=== PATIENT | male | born 1990 | race Caucasian/White ===

== ENCOUNTER 2024-12-12 16:27 | Inpatient (IN) | payer BC, SELFPAY ==
[2024-12-12 09:59] VITALS: BP 122/83
--- NOTE | 2024-12-12 11:22 | ED.GENMED ---
History of Present Illness
<Mary Ann Smyth GOVERNMENT EMPLOYEE - Last Filed: 12/12/24 17:19>
General
Chief Complaint: Abdominal Pain
Source: patient
Exam Limitations: none
Time Seen by Provider: 12/12/24 11:11
Nursing documentation reviewed up to this point in time: agreed with
History of Present Illness
History of Present Illness:
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 He states 2 days ago he was feeling much
better and started eating again and had pizza and his stomach was a little upset but not bad. Last night he had quesadillas and 2 hours later he had intense generalized stomach pains and broke out in a sweat. He took Tums and Pepto-Bismol with no
relief. He then burped and got some relief. At 11 PM last night he had a few pretzels and at 1 AM he awakened' agonizing pain' which lasted about an hour with vomiting x 3 during that time. Pain improved a little and he did fall back asleep. His
abdomen feels distended and inflamed. His diarrhea has improved to now loose stools. He denies nausea. He states at this time pain is minimal. Denies fever.
Past History
<Mary Ann Smyth GOVERNMENT EMPLOYEE - Last Filed: 12/12/24 17:19>
Past History
ED Past Medical History: HTN, Psychiatric (Anxiety), Other (VLCAD) and Other
ED Past Surgical History: Other (wisdom teeth)
Social History
Tobacco: Non-smoker
Alcohol: Occasional
Personal:
Living: with family
Employment: Employed
Family History
Family History: Negative Diabetes, Hypertension or CAD
Review of Systems
<Mary Ann Smyth GOVERNMENT EMPLOYEE - Last Filed: 12/12/24 17:19>
Review of Systems
Allergies reviewed?: Yes
All Other Systems: ROS reviewed and negative except as documented in HPI and ROS
Constitutional: Denies fever or fatigue
Respiratory: Denies trouble breathing
Cardiac: Denies chest pain
ABD/GI: Reports abdominal pain; Denies nausea, vomiting, diarrhea, constipated, bloody stools, black stools or anorexia
: Reports no symptoms
Musculoskeletal: Reports no symptoms
Skin: Reports no symptoms
Neurological: Reports no symptoms
Phy Exam
<Mary Ann Smyth, GOVERNMENT EMPLOYEE - Last Filed: 12/12/24 17:19>
Physical Exam
Physical Exam:
GENERAL: No acute distress. A&Ox3.
CONSTITUTIONAL: Afebrile.
EYES: clear, conjunctivae normal
ENMT: moist mucus membranes
RESPIRATORY: Regular respirations, nonlabored, lungs clear.
CARDIOVASCULAR: Regular rate and rhythm, no murmurs, no rubs.
GI: Soft, generally mildly tender to palpation, mildly distended, normal BS
MUSCULOSKELETAL: Moves with ease. Well perfused.
SKIN: Warm, dry, pink
PSYCH: Normal mood and affect. Well kept, interactive and appropriate
NEUROLOGIC: Awake, alert and oriented. No focal neurological deficits
Course
<Mary Ann Smyth, GOVERNMENT EMPLOYEE - Last Filed: 12/12/24 17:19>
Orders/Labs/Results
Orders:
Orders
12/12/24 11:21
CT Abd/Pel (IV only)-DH only Urgent
Comment:
Reason For Exam: generalized abd pain bloating post norovirus
0.9% Sodium Chloride 1000 ml [Nss] 1,000 ml IV BOLUS
12/12/24 11:30
Complete Blood Count/With Diff Urgent
Comprehensive Metabolic Panel Urgent
Lipase Urgent
Monotest Urgent
Comment: ADD ON
12/12/24 12:14
Add On- LAB Urgent
Tests Added?: mono test
12/12/24 12:54
Ondansetron Injectable [Zofran] 4 mg .ROUTE .STK-MED ONE
12/12/24 12:56
Ondansetron Injectable [Zofran] 4 mg IV NOW STA
12/12/24 13:42
Nitroglycerin Ointment [Nitro-Bid] 1 inch TOPICAL NOW STA
12/12/24 14:00
Dextrose 5%/0.9%Sodchl 1000 ml [D5/0.9% Sodium Chloride] 1,000 ml IV 125 mls/hr
US Abdomen Complete/Upper Urgent
Comment:
Reason For Exam: GB wall thickening on CT, elevated lipase
12/12/24 Dinner
Full Liquids
12/12/24 16:08
Admit/Transfer Patient As Directed
Co-Sign Provider:
Level of Care: Inpatient admission
Assign to:: Medical/Surgical
Physician / Group: Carmella
Diagnosis: Acute abdominal pain
Reason for Hospitalization: Acute abdominal pain
Expected length of stay greater than two midnights?: Yes
ELOS- Estimated Length of Stay in days: 3
I certify the patient meets the requirements for IP care: Yes
PRN Pain Medication Management As Directed
May give lesser potent ordered pain med per pt: Yes
preference::
Protocol:: Medication orders for pain may be administered in a
manner that supports deferring to patient preference
when the pt is:
- Requesting an ordered lesser potent pain medication.
Least to most potent pain medications are defined
as: acetaminophen < NSAID < tramadol < opioids
(morphine, oxycodone, hydromorphone).
- Requesting a lesser dose of the same medication IF
ORDERED.
- Requesting a less intrusive route of administration
if both routes are prescribed by the provider (PO <
IV).
DX Deep Vein Thrombosis Video Routine
12/12/24 16:09
Code Status As Directed
Resuscitation Status: Full Code
GASTROINTESTINAL CONSULT Routine
Consulting Provider: Meghna Upton
Was physician already notified: Yes
Reason for consult: History of abdominal pain, elevated transaminase and lipase
Bisacodyl [Dulcolax] 10 mg RECTAL [id number] PRN
Docusate W/Senna [Senokot-S] 1 tablet PO BIDPRN PRN
Ketorolac [Toradol] 10 mg IV Q6HPRN PRN
Morphine Sulfate 2 mg IV Q4HPRN PRN
Ondansetron Injectable [Zofran] 4 mg IV Q6HPRN PRN
Polyethylene Glycol Powder [Miralax] 17 grams PO DAILYPRN PRN
Activity As Directed
Activity Level: Out of Bed-Early Mobility
Vital Signs As Directed
Frequency: Per unit guidelines
12/12/24 18:00
Enoxaparin Sodium [Lovenox] 40 mg SC QPM
Piperacillin/Tazo 3.375 Gram [Zosyn] 3.375 gram in 50 ml IV Q6H
12/13/24 06:00
Complete Blood Count/With Diff IN AM
Comprehensive Metabolic Panel IN AM
TSH IN AM
12/13/24 08:00
Citalopram [Celexa] 10 mg PO DAILY
Abnormal Lab Results
12/12/24
11:30
WBC 4.1 L 10^3/uL
(4.8-10.8)
RBC 4.47 L 10^6/uL
(4.70-6.10)
Hct 38.7 L %
(39.0-52.0)
MPV 11.6 H fL
(7.4-10.4)
Monocytes % 12.0 H %
(1.7-9.3)
Carbon Dioxide 34 H mmol/L
(22-30)
Glucose 101 H mg/dl
(70-99)
Total Bilirubin 1.8 H mg/dl
(0.2-1.3)
AST 606 H* U/L
(17-59)
ALT 564 H* U/L
(0-50)
Lipase 3979 H* U/L
(23-300)
12/12/24 11:30
12/12/24 11:30
Vital Signs
Initial and Last Documented VS:
Initial Vital Signs
Temp Pulse Resp BP Pulse Ox
98.4 F 81 20 122/83 95
12/12/24 09:59 12/12/24 09:59 12/12/24 09:59 12/12/24 09:59 12/12/24 09:59
Last Documented Vital Signs
Temp Pulse Resp BP Pulse Ox
98.4 F 81 20 122/83 95
12/12/24 09:59 12/12/24 09:59 12/12/24 09:59 12/12/24 09:59 12/12/24 09:59
Cuff Matcher consulted with Physician
Cuff Matcher consulted with physician?: Yes
Name of Physician Consulted: Roro
<Lew Read, DO - Last Filed: 12/12/24 13:35>
Orders/Labs/Results
Orders:
Orders
12/12/24 11:21
CT Abd/Pel (IV only)-[facility] only Urgent
Comment:
Reason For Exam: generalized abd pain bloating post norovirus
0.9% Sodium Chloride 1000 ml [Nss] 1,000 ml IV BOLUS
12/12/24 11:30
Complete Blood Count/With Diff Urgent
Comprehensive Metabolic Panel Urgent
Lipase Urgent
Monotest Urgent
Comment: ADD ON
12/12/24 12:14
Add On- LAB Urgent
Tests Added?: mono test
12/12/24 12:54
Ondansetron Injectable [Zofran] 4 mg .ROUTE .STK-MED ONE
12/12/24 12:56
Ondansetron Injectable [Zofran] 4 mg IV NOW STA
12/12/24 13:42
Nitroglycerin Ointment [Nitro-Bid] 1 inch TOPICAL NOW STA
12/12/24 14:00
Dextrose 5%/0.9%Sodchl 1000 ml [D5/0.9% Sodium Chloride] 1,000 ml IV 125 mls/hr
US Abdomen Complete/Upper Urgent
Comment:
Reason For Exam: GB wall thickening on CT, elevated lipase
12/12/24 Dinner
Full Liquids
12/12/24 16:08
Admit/Transfer Patient As Directed
Co-Sign Provider:
Level of Care: Inpatient admission
Assign to:: Medical/Surgical
Physician / Group: Carmella
Diagnosis: Acute abdominal pain
Reason for Hospitalization: Acute abdominal pain
Expected length of stay greater than two midnights?: Yes
ELOS- Estimated Length of Stay in days: 3
I certify the patient meets the requirements for IP care: Yes
PRN Pain Medication Management As Directed
May give lesser potent ordered pain med per pt: Yes
preference::
Protocol:: Medication orders for pain may be administered in a
manner that supports deferring to patient preference
when the pt is:
- Requesting an ordered lesser potent pain medication.
Least to most potent pain medications are defined
as: acetaminophen < NSAID < tramadol < opioids
(morphine, oxycodone, hydromorphone).
- Requesting a lesser dose of the same medication IF
ORDERED.
- Requesting a less intrusive route of administration
if both routes are prescribed by the provider (PO <
IV).
DX Deep Vein Thrombosis Video Routine
12/12/24 16:09
Code Status As Directed
Resuscitation Status: Full Code
GASTROINTESTINAL CONSULT Routine
Consulting Provider: Meghna Upton
Was physician already notified: Yes
Reason for consult: History of abdominal pain, elevated transaminase and lipase
Bisacodyl [Dulcolax] 10 mg RECTAL [id number] PRN
Docusate W/Senna [Senokot-S] 1 tablet PO BIDPRN PRN
Ketorolac [Toradol] 10 mg IV Q6HPRN PRN
Morphine Sulfate 2 mg IV Q4HPRN PRN
Ondansetron Injectable [Zofran] 4 mg IV Q6HPRN PRN
Polyethylene Glycol Powder [Miralax] 17 grams PO DAILYPRN PRN
Activity As Directed
Activity Level: Out of Bed-Early Mobility
Vital Signs As Directed
Frequency: Per unit guidelines
12/12/24 18:00
Enoxaparin Sodium [Lovenox] 40 mg SC QPM
Piperacillin/Tazo 3.375 Gram [Zosyn] 3.375 gram in 50 ml IV Q6H
12/13/24 06:00
Complete Blood Count/With Diff IN AM
Comprehensive Metabolic Panel IN AM
TSH IN AM
12/13/24 08:00
Citalopram [Celexa] 10 mg PO DAILY
Abnormal Lab Results
12/12/24
11:30
WBC 4.1 L 10^3/uL
(4.8-10.8)
RBC 4.47 L 10^6/uL
(4.70-6.10)
Hct 38.7 L %
(39.0-52.0)
MPV 11.6 H fL
(7.4-10.4)
Monocytes % 12.0 H %
(1.7-9.3)
Carbon Dioxide 34 H mmol/L
(22-30)
Glucose 101 H mg/dl
(70-99)
Total Bilirubin 1.8 H mg/dl
(0.2-1.3)
AST 606 H* U/L
(17-59)
ALT 564 H* U/L
(0-50)
Lipase 3979 H* U/L
(23-300)
12/12/24 11:30
12/12/24 11:30
Vital Signs
Initial and Last Documented VS:
Initial Vital Signs
Temp Pulse Resp BP Pulse Ox
98.4 F 81 20 122/83 95
12/12/24 09:59 12/12/24 09:59 12/12/24 09:59 12/12/24 09:59 12/12/24 09:59
Last Documented Vital Signs
Temp Pulse Resp BP Pulse Ox
98.4 F 81 20 122/83 95
12/12/24 09:59 12/12/24 09:59 12/12/24 09:59 12/12/24 09:59 12/12/24 09:59
<Mary Ann Smyth GOVERNMENT EMPLOYEE - Last Filed: 12/12/24 17:19>
MDM/Problems Addressed
Differential Diagnosis Includes:
colitis
MDM/Problems Addressed:
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 He states 2 days ago he was feeling much
better and started eating again and had pizza and his stomach was a little upset but not bad. Last night he had quesadillas and 2 hours later he had intense generalized stomach pains and broke out in a sweat. He took Tums and Pepto-Bismol with no
relief. He then burped and got some relief. At 11 PM last night he had a few pretzels and at 1 AM he awakened' agonizing pain' which lasted about an hour with vomiting x 3 during that time. Pain improved a little and he did fall back asleep. His
abdomen feels distended and inflamed. His diarrhea has improved to now loose stools. He denies nausea. He states at this time pain is minimal. Denies fever.
Afebrile, NAD
Abdomen mildly distended, generally tender
12:10 PM:
CBC with no clinically significant abnormality
CMP: Bicarb 34, elevated liver enzymes
Lipase 3979
2:[address] abd/pelvis w IV contrast radiology report read: IMPRESSION:
Mild gallbladder wall thickening with the suggestion of a few noncalcified gallstones. Recommend clinical correlation for acute cholecystitis. An abdominal ultrasound could be performed for further evaluation.
Hepatic steatosis.
Mild splenomegaly.
Dr. Read in to evaluate
US ordered. Pt updated on plan, need for admission. He is ambulating to and from , no acute distress.
3:30 p.m.
Us upper abd. Radiology report read: IMPRESSION:
Small nonmobile echogenic foci in the gallbladder most compatible with gallbladder polyps.
Gallbladder wall thickening and pericholecystic fluid. While this could represent acalculus cholecystitis, given the reported history of elevated lipase levels, findings may be reactive from pancreatitis. The pancreas is not well visualized by
ultrasound, but no conspicuous peripancreatic edema/fluid on the previous CT.
Hepatic steatosis.
Mild splenomegaly.
Hospitalist and GI doctor notified of admission. GI consult in. Pt remains in no distress
<Mary Ann Smyth, GOVERNMENT EMPLOYEE - Last Filed: 12/12/24 17:19>
*Critical Care Note
Total Time (30-74mins, 75-104mins- exclusive of procedures): Not Applicable
ED Attending Note
<Mary Ann Smyth, GOVERNMENT EMPLOYEE - Last Filed: 12/12/24 17:19>
-
Portions of this chart may have been created with voice recognition software.� Occasional wrong word or��sound alike� substitutions may have occurred due to the inherent limitations of voice recognition software.
<Lew Read DO - Last Filed: 12/12/24 13:35>
ED Attending Note
Patient seen and examined by attending physician: Yes
I performed the substantive portion of visit, reviewed & personally made and approve the management plan that is documented in note by myself or YESSI.: Yes
Discharge Plan
Departure
Patient Disposition: Admit
Date of Disposition: 12/12/24
Time of Disposition: 15:31
Admit to: Med/Surg
Presentation/result/management discussed w/ accepting MD/DO: Hospitalist
Condition: Fair
Discharge Problem:
Acute pancreatitis
Interventions
Interventions:
*Risk Screen - Suicide Last Done: 12/12/24 09:59
*General Assessment Last Done: 12/12/24 11:15
*Neglect/Abuse Screening Last Done: 12/12/24 09:59
HX-Kennbq-Tmzlanfbra Assessment Last Done: 12/12/24 11:15
[2024-12-12 11:40] VITALS: BMI 27.9
[2024-12-12 11:46] LABS: % Basophils 0.2 % (0-2); % Eosinophils 0.2 % (0-6); % Immature Granulocytes 0.2 % (0-0.5); % Lymphocytes 28.6 % (20.5-51.1); % Neutrophils 58.8 % (42.2-75.2); Absolute Lymphocytes 1.2 10^3/uL (1.2-3.4); Absolute Monocytes 0.5 10^3/uL (0.1-0.6); Absolute Neutrophils 2.4 10^3/uL (1.4-6.5); Hematocrit 38.7 % (39.0-52.0); Hemoglobin 13.6 g/dL (13.0-18.0); Mean Corp Hgb Conc. 35.1 g/dL (33.0-37.0); Mean Corpuscular Hgb 30.4 pg (27.0-31.0); Mean Corpuscular Volume 86.6 fL (80.0-94.0); Mean Platelet Volume 11.6 fL (7.4-10.4); Nucleated Red Blood Cells % 0 % (-); Platelet Count 210 10^3/uL (130-400); Red Blood Cell Count 4.47 10^6/uL (4.70-6.10); Red Cell Dist. Width 12.1 % (11.5-14.5); White Blood Cell Count 4.1 10^3/uL (4.8-10.8)
[2024-12-12] MEDS: NSS 1000 IV (11:49)
[2024-12-12 12:00] LABS: ALT (SGPT) 564 U/L (0-50); AST (SGOT) 606 U/L (17-59); Albumin 3.8 g/dl (3.5-5.0); Alkaline Phosphatase 64 U/L (38-126); Blood Urea Nitrogen 16 mg/dl (9-20); Calcium 8.7 mg/dl (8.4-10.2); Carbon Dioxide 34 mmol/L (22-30); Chloride 98 mmol/L (98-107); Estimated Creatinine Clearance 121 ml/min; Glucose 101 mg/dl (70-99); Potassium 4.1 mmol/L (3.5-5.1); Sodium 136 mmol/L (135-145); Total Bilirubin 1.8 mg/dl (0.2-1.3); Total Protein 6.3 g/dl (6.3-8.2); eGFR > 60.00
[2024-12-12 12:05] LABS: Lipase 3979 U/L (23-300)
[2024-12-12] MEDS: ZOFRAN 4 MG IV (12:56)
[2024-12-12 13:57] LABS: Monotest Negative (Negative)
[2024-12-12] MEDS: D5/0.9% SODIUM CHLORIDE 1000 IV ×2 (14:00→21:51)
--- NOTE | 2024-12-12 16:12 | HPS.HSE ---
Family Physician
-
Family Physician: Austin Bocanegra
Chief Complaint
-
Acute abdominal pain
History of Present Illness
34-year-old male with history of hypertension, VLCAD (very long-chain acyl-CoA dehydrogenase deficiency) and chronically elevated LFT, anxiety disorder, presented to the hospital complaining of intermittent generalized abdominal mostly periumbilical
pain for the last few days associated with recurrent episodes of nausea and nonbloody vomiting.
Story goes back to last Friday when he came down to the norovirus gastroenteritis look like to recover but Friday he was living with his parents had some pizza and yesterday look like at some quesadilla shortly after that he started having these
moderately severe intermittent abdominal pain, localized no radiation, as mentioned associated with nausea and nonbloody vomiting and nonbloody diarrhea. Last week he had much more diarrhea.
Admits swelling and low-grade fever, no chest pain or shortness of breath or cough or congestion, no recent travel admit the low son was sick from a daycare last week.
No weakness or numbness in extremities.
Currently awake, alert and oriented x 3 and able to provide detailed information accompanied by the at the bedside.
Workup in the ER showed elevated transaminases and lipase, while CT and ultrasound showed no dilated biliary system no evidence of pancreatitis while there is swelling of the gallbladder but no stones seen.
Currently looks comfortable and having no abdominal pain
Medical History
Past Medical History
Past Medical History: Reports Other
Additional Past Medical History:
Past medical history archive reviewed:
Hypertension
Anxiety disorder
VLCAD (very long-chain acyl-CoA dehydrogenase deficiency)
History of Lyme disease
[place] teeth resection
Social history: Lives at home with his , denies smoking and rarely drinks alcohol and no drug and is independent
Family history: Reviewed and noncontributory
Past Surgical History: Reports Other
Social History
Drug: Other
Family History
Family History: Other
Allergies / Home Medications
Allergies reflects when Allergies were last updated in [facility].
Home Medications with original date entered in [facility]
Allergy/Medication List:
Allergies
Allergy/AdvReac Type Severity Reaction Status Date / Time
No Known Allergies Allergy Verified 12/12/24 09:59
Home Medications
Home medication reconciled with the patient: Takes 2 medication all
Citalopram 10 mg daily
lisinopril 10 mg tablet 10 mg PO DAILY 07/14/22
Review of Systems
-
A 12 point ROS was completed and negative except as noted: Yes
Physical Exam
Vital Signs
Vital Signs
Temp Pulse Resp BP Pulse Ox
98.4 F 81 20 122/83 95
12/12/24 09:59 12/12/24 09:59 12/12/24 09:59 12/12/24 09:59 12/12/24 09:59
Physical exam:
General: Awake, alert and oriented x3, not in distress and holds appropriate conversation.
HEENT: No active discharge, ecchymosis or bruising, moist lips, tongue and mucous membrane.
Eyes: No discharge or red conjunctiva, no nystagmus, pupils are reactive and equal
Neck:Supple, no JVD no bruit no goiter.
Respiratory: Normal AP contour and diameter, normal chest wall movement, normal respiratory effort, no respiratory distress,
Lungs: Good air entry bilaterally, no wheezing or rhonchi, no rales or crackles
Heart: S1, S2 regular, normal rate, no added sound.
Gastrointestinal: Hyperactive bowel sounds, soft, mild generalized tenderness with no guarding or rigidity or organomegaly
Musculoskeletal: , no chest wall abnormality or tenderness. All joints and extremities have good range of motion, no muscle tenderness or any joint swelling or tenderness.
Extremities: No pitting edema, good peripheral pulses, good range of motion
Skin: Warm and dry, no ulceration, normal color.
Neurological: Awake, alert and oriented x3, normal mentation and moves extremities for, speech clear and comprehensive, good muscle tone,
Psychiatric: Normal mood, normal thought and judgment, normal affect,
Physical Exam
General: Other
Laboratory Results
-
12/12/24 11:30
12/12/24 11:30
Laboratory Results
Total Bilirubin 1.8 mg/dl (0.2-1.3) H 12/12/24 11:30
AST 606 U/L (17-59) H* 12/12/24 11:30
ALT 564 U/L (0-50) H* 12/12/24 11:30
Alkaline Phosphatase 64 U/L (38-126) 12/12/24 11:30
Lipase 3979 U/L (23-300) H* 12/12/24 11:30
Abdominal ultrasound:
Small nonmobile echogenic foci in the gallbladder most compatible with gallbladder polyps.
Gallbladder wall thickening and pericholecystic fluid. While this could represent acalculus cholecystitis, given the reported history of elevated lipase levels, findings may be reactive from pancreatitis. The pancreas is not well visualized by
ultrasound, but no conspicuous peripancreatic edema/fluid on the previous CT.
Hepatic steatosis.
Mild splenomegaly.
CT abdomen and pelvis:
Mild gallbladder wall thickening with the suggestion of a few noncalcified gallstones. Recommend clinical correlation for acute cholecystitis. An abdominal ultrasound could be performed for further evaluation.
Hepatic steatosis.
Mild splenomegaly.
Data Reviewed
-
Diagnostic Radiology: Image Personally Visualized and interpreted, Report Reviewed by me, Discussed with Patient and Discussed with Family
CT Scan: Image Personally Visualized and interpreted, Discussed with Patient and Discussed with Family
Lab Data: Labs Reviewed by me, Discussed with Patient and Discussed with Family
Old Records: Reviewed
Impression/Plan
-
IMPRESSION:
34-year-old male with history of VLCAD (very long-chain acyl-CoA dehydrogenase deficiency) and chronically elevated LFT, hypertension who had a norovirus infection last week presented again with a recurrent generalized abdominal pain mostly
periumbilical associated with nonbloody nausea and diarrhea.
LFT and lipase is elevated while CT abdomen and gallbladder did not show any dilated biliary system gallstones with concern for cholecystitis.
Acute abdominal pain:
Possibly related to gastroenteritis and cholecystitis, pancreatitis even the CAT scan showed no evidence of pancreatitis but his lipase is elevated and had acute abdominal pain, no evidence of biliary obstruction.
-Will put him on a full liquid diet
-Nausea, pain medication with morphine and Toradol as needed
-IV fluid
-GI consult, accordingly may need surgical consult
-Recheck lab
-If any concern may consider MRCP.
Elevation of transaminase: Patient has history of VLCAD (very long-chain acyl-CoA dehydrogenase deficiency) and chronically elevated LFT, possibly related to this while biliary obstruction or dehydration from viral infection could be a possibility.
-Avoid hepatotoxin
-GI consult
-Recheck lab
-As above ,, MRCP may need to be considered if not improving
Gastroenteritis:-Patient had a normal gastric virus gastroenteritis last week
-Not related to the current presentation versus pancreatitis and no cholecystitis
-Full liquid diet
-IV fluid
-If diarrhea is persistent may consider getting stool culture again
Elevated lipase: Acute pancreatitis specially had a fatty food yesterday versus related to gastroenteritis need to be considered, obstructive or biliary cause could be a possibility
-Manage as above
-Recheck lab.
Concern for acute cholecystitis:
-Manage as above
-Full liquid diet
-GI consult for now
-Cover with Zosyn
-May need surgical consult pending his progression.
Hypertension:
-Monitor blood pressure
-Continue lisinopril with close monitoring of vital sign.
Anxiety disorder:
-On citalopram 10 mg we will continue.
All discussed with the patient and his in detail and all the question answered
CODE STATUS of full code
DVT prophylaxis Lovenox
PLAN:
[2024-12-12 18:13] VITALS: BP 130/76; BMI 27.8
[2024-12-12] MEDS: TORADOL 10 MG IV (18:38)
[2024-12-12] MEDS: ZOSYN 50 IV ×2 (18:40→22:59)
[2024-12-12] MEDS: LOVENOX 40 MG SC (18:40)
[2024-12-12] MEDS: LEXAPRO 10 MG PO (21:52)
[2024-12-12] MEDS: ZESTRIL 10 MG PO (21:52)
[2024-12-12 23:04] VITALS: BP 128/75
[2024-12-13] MEDS: ZOSYN 50 IV ×2 (05:12→12:21)
[2024-12-13] MEDS: D5/0.9% SODIUM CHLORIDE 1000 IV ×2 (05:12→17:26)
[2024-12-13 06:16] LABS: % Basophils 0.4 % (0-2); % Eosinophils 0.7 % (0-6); % Lymphocytes 38.7 % (20.5-51.1); % Neutrophils 46.2 % (42.2-75.2); Absolute Lymphocytes 1.1 10^3/uL (1.2-3.4); Absolute Monocytes 0.4 10^3/uL (0.1-0.6); Absolute Neutrophils 1.3 10^3/uL (1.4-6.5); Hematocrit 34.4 % (39.0-52.0); Hemoglobin 12.2 g/dL (13.0-18.0); Mean Corp Hgb Conc. 35.5 g/dL (33.0-37.0); Mean Corpuscular Hgb 30.8 pg (27.0-31.0); Mean Corpuscular Volume 86.9 fL (80.0-94.0); Mean Platelet Volume 11.4 fL (7.4-10.4); Nucleated Red Blood Cells % 0 % (-); Platelet Count 167 10^3/uL (130-400); Red Blood Cell Count 3.96 10^6/uL (4.70-6.10); Red Cell Dist. Width 12.3 % (11.5-14.5); White Blood Cell Count 2.7 10^3/uL (4.8-10.8)
[2024-12-13 06:57] LABS: AST (SGOT) 637 U/L (17-59); Albumin 3.1 g/dl (3.5-5.0); Alkaline Phosphatase 56 U/L (38-126); Blood Urea Nitrogen 12 mg/dl (9-20); Calcium 7.8 mg/dl (8.4-10.2); Carbon Dioxide 33 mmol/L (22-30); Chloride 102 mmol/L (98-107); Estimated Creatinine Clearance 110 ml/min; Glucose 109 mg/dl (70-99); Potassium 4.2 mmol/L (3.5-5.1); Sodium 137 mmol/L (135-145); Total Bilirubin 1.9 mg/dl (0.2-1.3); Total Protein 5.1 g/dl (6.3-8.2); eGFR > 60.00
[2024-12-13 07:05] VITALS: BP 116/65
[2024-12-13 07:05] LABS: ALT (SGPT) 792 U/L (0-50)
[2024-12-13 07:17] LABS: TSH 0.71 uIU/ml (0.47-4.68)
--- NOTE | 2024-12-13 08:14 | CON.GI ---
Addendum entered and electronically signed by Meghna Upton MD 12/13/24 12:54:
I saw and examined the patient.
The WEBLOGIC DEVELOPER or PA's note was reviewed and I agree with the note.
Comment:
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 He states he had norovirus earlier in the week and
as it was resolving he started eating pizza and quesadillas. Normally he also takes a supplement for his VL CAD but he does not think it was effective. On admission to the hospital he had a lipase of 3900 and transaminases in the 500 range. He
does have elevated transaminases at baseline. He had an ultrasound and CAT scan. There is no evidence of pancreatitis but he does have gallstones he has no obvious biliary dilation.
abd: soft, nontender
impression:
VLCAD
abdominal pain
nausea
s/p recent norovirus
plan:
His symptoms do sound like he may have been having a flare of his VLCAD which she knows leads to elevated CK, and transaminases. This may have been because he was not absorbing his supplement and was also eating foods he normally should not be
eating. On the other hand this also could be consistent with a passed gallstone. His lipase did markedly drop. For now would do the following
1. check triglycerides
2. w/u for elevated transaminases
3. MRI/MRCP to ensure he does not have a retained stone.
4. If negative I would advance his diet to a high carb diet. We do have to be careful as he does not have his supplement that he chronically takes to prevent flares.
5. He has had both an upper endoscopy and colonoscopy in the past which were normal.
6. continue IVfs and zofran
Original Note:
Consultation
-
Date/Time Consultation Requested: 12/12/2024
Date/Time Consultation Performed: 12/13/2024
Requesting Provider: Monika Weir MD
Performing Provider: Ivett Shore MD
Reason for Consultation: Abdominal pain
Medical History
Chief Complaint / HPI
Chief Complaint: Abdominal pain
History of Present Illness:
Patient is a 34 years old male with a past medical history of VLCAD (very long-chain acyl-CoA dehydrogenase deficiency), chronically elevated LFT, hypertension and anxiety disorder who presented to ER complaining from abdominal pain, feeling weak
and nauseous. Patient reports that he had a gastroenteritis like-symptoms since last week complicated with vomiting, diarrhea and episodes of severe mid-abdominal pain which started on December 05 and improved over the time until Friday night.
On Friday night he ate some pizza and was able to tolerate it without vomiting or abdominal pain. Following day, he had some quesadilla but shortly after his symptoms come back including vomiting and intermittent abdominal pain. He reported his
diarrhea improved during this time and his last bowel movement was yesterday. Patient denied hematemesis and melena. An abdominal/Pelvis CT was obtained from the patient which showed hepatic steatosis, mild gallbladder wall thickening with a
suggestion of a few noncalcified gallstones, with recommendation to obtain an ultrasound for a possible acute cholecystitis. Abdominal ultrasound showed a mild pericholecystic fluid and pancreas was not able to visualize bile secondary to
adjacent bowel gas.
Past Medical History
Past Medical History: HTN and Other (VLCAD (very long-chain acyl-CoA dehydrogenase deficiency), history of Lyme disease, anxiety disorder)
Past Surgical History: Other ([place] teeth resection)
Social History
Tobacco: Non-Smoker
Alcohol: None
Drug: None
Personal:
Living: With Family
Family History
Family History: Reviewed & Not Pertinent
Allergies / Home Medications
Allergy/AdvReac Type Severity Reaction Status Date / Time
No Known Allergies Allergy Verified 12/12/24 09:59
�Medication �Instructions �Recorded
lisinopril 10 mg tablet 10 mg PO HS 07/14/22
escitalopram oxalate 10 mg tablet 10 mg PO HS 12/12/24
(Lexapro)
Review of Systems
-
History Source: Patient
All other systems: A 12 pt ROS was Negative except as stated above in HPI
Constitutional: Reports No Symptoms
EENT: Reports No Symptoms
Respiratory: Reports No Symptoms
Cardiac: Reports No Symptoms
Abdomen/GI: Reports Abdominal Pain, Nausea and Diarrhea
: Reports No Symptoms
Musculoskeletal: Reports No Symptoms
Skin: Reports No Symptoms
Neurological: Reports No Symptoms
Endocrine: Reports No Symptoms
Hematologic/Lymphatic: Reports No Symptoms
Vital Signs
Temp Pulse Resp BP Pulse Ox
98.1 F 54 18 116/65 96
12/13/24 07:05 12/13/24 07:05 12/13/24 07:05 12/13/24 07:05 12/13/24 07:05
Physical Exam
Exam
General: Well Developed, Well Nourished and No Apparent Distress
HEENT: Normocephalic and Anicteric
Respiratory: Clear
Cardiac: S1/S2 and Regular Rhythm
Breast: Deferred by me
GI: Soft, Non Tender and Non Distended
Musculoskeletal: No Clubbing
Skin: Warm and Dry
Neuro: Awake, Alert and Oriented
Psych: Calm
Results
WBC 2.7 10^3/uL (4.8-10.8) L 12/13/24 05:54
Hgb 12.2 g/dL (13.0-18.0) L 12/13/24 05:54
Hct 34.4 % (39.0-52.0) L 12/13/24 05:54
MCV 86.9 fL (80.0-94.0) 12/13/24 05:54
Plt Count 167 10^3/uL (130-400) D 12/13/24 05:54
Absolute Neuts (auto) 1.3 10^3/uL (1.4-6.5) L 12/13/24 05:54
Sodium 137 mmol/L (135-145) 12/13/24 05:54
Potassium 4.2 mmol/L (3.5-5.1) 12/13/24 05:54
Chloride 102 mmol/L (98-107) 12/13/24 05:54
Carbon Dioxide 33 mmol/L (22-30) H 12/13/24 05:54
BUN 12 mg/dl (9-20) 12/13/24 05:54
Creatinine 1.1 mg/dL (0.7-1.3) 12/13/24 05:54
Calcium 7.8 mg/dl (8.4-10.2) L 12/13/24 05:54
Total Bilirubin 1.9 mg/dl (0.2-1.3) H 12/13/24 05:54
AST 637 U/L (17-59) H* 12/13/24 05:54
ALT 792 U/L (0-50) H* 12/13/24 05:54
Alkaline Phosphatase 56 U/L (38-126) 12/13/24 05:54
Lipase 3979 U/L (23-300) H* 12/12/24 11:30
Diagnostic Image Results:
ABD CT:12/12/2024
IMPRESSION:
Mild gallbladder wall thickening with the suggestion of a few noncalcified gallstones. Recommend clinical correlation for acute cholecystitis. An abdominal ultrasound could be performed for further evaluation.
Hepatic steatosis.
Mild splenomegaly.
ABD US: 12/12/2024
IMPRESSION:
Small nonmobile echogenic foci in the gallbladder most compatible with gallbladder polyps.
Gallbladder wall thickening and pericholecystic fluid. While this could represent acalculus cholecystitis, given the reported history of elevated lipase levels, findings may be reactive from pancreatitis. The pancreas is not well visualized by
ultrasound, but no conspicuous peripancreatic edema/fluid on the previous CT.
Hepatic steatosis.
Mild splenomegaly.
Prior GI Procedures:
EGD 10/02/22:
Findings:
The examined esophagus was normal.
Mild inflammation was found in the stomach. Biopsies were taken with a
cold forceps for histology. Biopsies were taken with a cold forceps for
Helicobacter pylori testing.
The examined duodenum was normal. Biopsies were taken with a cold
forceps for histology.
Colonoscopy: 10/02/22
Findings:
The terminal ileum appeared normal.
The entire examined colon appeared normal. Biopsies for histology were
taken with a cold forceps from the right colon and left colon for
evaluation of microscopic colitis.
Impression: - The examined portion of the ileum was normal.
- The entire examined colon is normal. Biopsied.
Assessment / Plan
-
Assessment:
Impression: This is a 34-year-old male who has VLCAD (very long-chain acyl-CoA dehydrogenase deficiency) and chronic elevated LFT levels and was being followed up at [facility] for it. He has been on low fatty-high carb diet and has been taking Dijovi (
Medium chain TG) to prevent progress of disease. The patient presented to ER complaining from abdominal pain, nausea and feeling weak, reporting having similar symptoms since last week and reporting some improvement until Friday night.Following
Friday night, he developed severe episodes of abdominal pain and vomiting and decided to come ER. At admission, his abdominal CT showed mild gallbladder wall thickening with the suggestion of a few noncalcified gallstones, fatty liver and no
biliary duct dilatation. His abdominal US was obtained for a clinical correlation and which confirmed gallbladder wall thickening and showed pericholecystic fluid. The pancreas was not well visualized by ultrasound or CT. His lab results are
significant for elevated lipase to 3979, AST to 637, ALT to 792, TB to 19, decreased WBC to 2.7.
On today`s PE, the patient reported feeling comfortable and tolerating clear liquid diet well since yesterday evening. Reports last bowel movement was yesterday and was not bloody, denies hematemesis, rates his abdominal pain 3/10 around his
umbilicus.
Problem List
Possible Acute cholecystitis
Possible pancreatitis
Elevated Lipase
Transaminitis
Gastroenteritis
Hx of VLCAD (very long-chain acyl-CoA dehydrogenase deficiency)
Possible Acute cholecystics
-Abd CT :mild gallbladder wall thickening with the suggestion of a few noncalcified gallstones, fatty liver and no biliary duct dilatation
-Abd US Confirming Gallbladder wall thickening and reporting pericholecystic fluid which compliant with a possible acute cholecystitis
-TB 1.9, no scleral icterus
-Continue Zosyn
-Cotine IV fluids
-MRCP can be considered based on patient`s clinical progress
Biochemical pancreatitis with elevated lipase levels/ Without imaging confirmation likely secondary due viral infection vs elevated lipid levels vs drug induced
-Lipase levels 3979 - seems improved to 418- follow up levels
-TG was ordered
-WBC : 2.7 leucopenia: secondary to viral infections? (Parvovirus, norovirus tests planned ) -mono negative
-Has been on lisinopril without problem
Transminitis
-AST/ALT 637/79
-Follow up levels daily
-Has a hx of VLCAD with fatty lever and chronically elevated LFT
-Hep panel was ordered including viral and autoimmune panel
-Thylenol level was ordered
-Rhabdomyolysis can be contributing/but underling liver problem likely more possible given ALT>AST
Gastroenteritis
-Ongoing diarrhea and nausea with improvement since yesterday
-On iv Fluids, PRN Zofran
-Tolerating liquid diet well
-Stool culture can be considered if symptoms persist
VLCAD (very long-chain acyl-CoA dehydrogenase deficiency)
-Has been on a special diet -following at [facility]
-Can be associated with myeloneuropathy, adrenal insufficiency and rhabdomyolysis
-CK increased
-Follow up kidney functions
Thanks Dr Upton having me involved this patient`s care. GI team will follow this patient
-
-
Thank you for consultation and allowing me to participate in the patient's care. Please call the partition assembly machine operator GI physician during the after hours with any questions or concerns.
--- NOTE | 2024-12-13 09:01 | W.PN.HOSP.TC ---
Today's Communication/Plan
-
Start diet. Plan for MRCP.
Assessment / Plan
Assessment / Plan
Physical exam:
General: Well Developed, Well Nourished and No Apparent Distress
HEENT: Normocephalic, Atraumatic and Moist Mucous Membranes
Respiratory: Clear to Auscultation; Negative Wheezes, Rales or Rhonchi
Cardiac: Regular Rhythm and S1/S2
GI: Soft, Nontender and Nondistended
Musculoskeletal: No Clubbing, No Cyanosis and No Edema
Neuro: Awake, Alert and Oriented
Psych: Calm
A/P:
Abdominal pain nausea vomiting and elevated LFTs:
Presumably exacerbation of VLCAD in the setting of recent norovirus but cannot rule out gallstone pancreatitis versus choledocholithiasis, cholelithiasis, cholangitis.
Nevertheless, given his abdominal pain subsided and clinically improved will stop antibiotics and observe clinically.
IV fluid
Keep full liquid diet for now
Stop antibiotics
Trend LFTs and lipase
Check CPK
Plan for MRCP today
GI consult
Very long chain acetyl Co. a dehydrogenase deficiency:
Follows up with specialist who was at [place] and then transferred.
On [facility] as outpatient
Needs high carbohydrate low-fat diet
Hypertension:
Continue lisinopril 10 mg p.o. nightly
Depression:
Continue escitalopram 10 mg p.o. nightly
DVT prophylaxis:
Lovenox SQ
CODE STATUS:
Full code
Total time spent on today's encounter was 52 minutes which included time spent in counseling the patient/family regarding diagnosis and treatment plan as listed above, goals of care, and symptom management. Case was discussed with nursing staff,
specialists, and care coordinators/case management. All labs and imaging personally reviewed by me. Remainder the time spent in detailed review of previous records, lab data, imaging, and other medical provider documentation.
Anticipated Discharge: 24 - 48 hours
Subjective/Interval History
-
Date of Service: December 13, 2024
Patient denies abdominal pain nausea vomiting today. Afebrile. No chest pain or shortness of breath.
Objective Data
-
Labs:
Laboratory Results
12/13/24
05:54
WBC 2.7 L
Hgb 12.2 L
Hct 34.4 L
Plt Count 167 D
Sodium 137
Potassium 4.2
Chloride 102
Carbon Dioxide 33 H
BUN 12
Creatinine 1.1
Glucose 109 H
Calcium 7.8 L
Total Bilirubin 1.9 H
AST 637 H*
ALT 792 H*
Alkaline Phosphatase 56
Vital Signs:
Vital Signs
Temp Pulse Resp BP Pulse Ox
98.1 F 54 18 116/65 96
12/13/24 07:05 12/13/24 07:05 12/13/24 07:05 12/13/24 07:05 12/13/24 07:05
I&O
12/12/24 12/13/24 12/14/24
06:59 06:59 06:59
Intake Total 2795 / 2795
Balance 2795 / 2795
[2024-12-13 10:57] LABS: INR 1.06; PT 14.1 Sec (11.4-14.6)
[2024-12-13 11:13] LABS: Creatine Phosphokinase 1501 U/L (55-170); Lipase 418 U/L (23-300)
[2024-12-13 12:28] LABS: Acetaminophen < 10 ug/ml (10-30); Triglycerides 59 mg/dl (10-149)
[2024-12-13 15:05] VITALS: BP 134/89
[2024-12-13] MEDS: LOVENOX 40 MG SC (17:25)
[2024-12-13] MEDS: ZESTRIL 10 MG PO (22:02)
[2024-12-13] MEDS: LEXAPRO 10 MG PO (22:14)
[2024-12-13 23:10] VITALS: BP 116/69
[2024-12-14] MEDS: D5/0.9% SODIUM CHLORIDE 1000 IV (03:11)
[2024-12-14 07:23] VITALS: BP 121/76
[2024-12-14 08:06] LABS: INR 1.11; PT 14.6 Sec (11.4-14.6)
--- NOTE | 2024-12-14 08:12 | W.PN.HOSP.TC ---
Today's Communication/Plan
-
Discharge planning today
Assessment / Plan
Assessment / Plan
Physical exam:
General: Well Developed, Well Nourished and No Apparent Distress
HEENT: Normocephalic, Atraumatic and Moist Mucous Membranes
Respiratory: Clear to Auscultation; Negative Wheezes, Rales or Rhonchi
Cardiac: Regular Rhythm and S1/S2
GI: Soft, Nontender and Nondistended
Musculoskeletal: No Clubbing, No Cyanosis and No Edema
Neuro: Awake, Alert and Oriented
Psych: Calm
A/P:
Abdominal pain nausea vomiting and elevated LFTs:
Exacerbation of VLCAD in the setting of acute viral gastroenteritis with norovirus and also an element of acute pancreatitis.
Norovirus positive.
Remains off antibiotics
Stop IV fluid
Tolerating low residue diet
Off antibiotics
Trend LFTs as outpatient
CPK trending down
Review MRCP result
GI consult appreciated
Plan to discharge today
Very long chain acetyl Co. a dehydrogenase deficiency:
Follows up with specialist who was at [place] and then transferred.
On [facility] as outpatient
Needs high carbohydrate low-fat diet
Hypertension:
Continue lisinopril 10 mg p.o. nightly
Depression:
Continue escitalopram 10 mg p.o. nightly
DVT prophylaxis:
Lovenox SQ
CODE STATUS:
Full code
Anticipated Discharge: Today
Subjective/Interval History
-
Date of Service: December 14, 2024
No abdominal pain. Tolerating diet.
Objective Data
-
Labs:
Laboratory Results
12/14/24
07:10
WBC Pending
Hgb Pending
Hct Pending
Plt Count Pending
PT Pending
INR Pending
Sodium Pending
Potassium Pending
Chloride Pending
Carbon Dioxide Pending
BUN Pending
Creatinine Pending
Glucose Pending
Calcium Pending
Total Bilirubin Pending
AST Pending
ALT Pending
Alkaline Phosphatase Pending
Vital Signs:
Vital Signs
Temp Pulse Resp BP Pulse Ox
98.2 F 61 20 121/76 97
12/14/24 07:27 12/14/24 07:23 12/14/24 07:23 12/14/24 07:23 12/14/24 07:23
I&O
12/13/24 12/14/24 12/15/24
06:59 06:59 06:59
Intake Total 2795 / 2795 2280 / 2280
Balance 2795 / 2795 2280 / 2280
[2024-12-14 08:18] LABS: % Basophils 0.3 % (0-2); % Eosinophils 0.5 % (0-6); % Lymphocytes 29.8 % (20.5-51.1); % Monocytes 10.2 % (1.7-9.3); % Neutrophils 59.2 % (42.2-75.2); Absolute Lymphocytes 1.2 10^3/uL (1.2-3.4); Absolute Monocytes 0.4 10^3/uL (0.1-0.6); Absolute Neutrophils 2.3 10^3/uL (1.4-6.5); Hematocrit 37.4 % (39.0-52.0); Hemoglobin 12.8 g/dL (13.0-18.0); Mean Corp Hgb Conc. 34.2 g/dL (33.0-37.0); Mean Corpuscular Volume 87.6 fL (80.0-94.0); Mean Platelet Volume 11.3 fL (7.4-10.4); Nucleated Red Blood Cells % 0 % (-); Platelet Count 213 10^3/uL (130-400); Red Blood Cell Count 4.27 10^6/uL (4.70-6.10); Red Cell Dist. Width 12.4 % (11.5-14.5); White Blood Cell Count 3.9 10^3/uL (4.8-10.8)
[2024-12-14 08:40] LABS: ALT (SGPT) 605 U/L (0-50); AST (SGOT) 215 U/L (17-59); Albumin 3.3 g/dl (3.5-5.0); Alkaline Phosphatase 51 U/L (38-126); Blood Urea Nitrogen 6 mg/dl (9-20); Calcium 8.2 mg/dl (8.4-10.2); Carbon Dioxide 29 mmol/L (22-30); Chloride 101 mmol/L (98-107); Creatine Phosphokinase 879 U/L (55-170); Direct Bilirubin 0.5 mg/dl (0.0-0.4); Estimated Creatinine Clearance > 125 ml/min; Glucose 111 mg/dl (70-99); Lipase 110 U/L (23-300); Potassium 4.1 mmol/L (3.5-5.1); Sodium 137 mmol/L (135-145); Total Bilirubin 1.1 mg/dl (0.2-1.3); Total Protein 5.4 g/dl (6.3-8.2); eGFR > 60.00
--- NOTE | 2024-12-14 10:13 | W.DCSUMMARY ---
Discharge Summary
Discharge Data
Date of Admission: 12/12/24
Date of Discharge: 12/14/24
-
Pending Results: No
Hospital Course
Patient 54 years old male with history of VL CAD, hypertension, came into the hospital abdominal pain nausea and vomiting and diarrhea. Patient was treated with IV fluids and supportive care. Antibiotics were initiated but subsequently
discontinued. He had a lipase that was significantly elevated with possible pancreatitis and lipase came down to normal. He had been able to tolerate diet without any problems. His symptoms have subsided. GI evaluated the patient and he also had
an MRCP ordered by GI. Patient had tested for norovirus that was positive. LFTs have continued to trend down. Otherwise, patient hemodynamically and symptomatically improved. He will be discharged in stable condition today.
Discharge duration: 34 minutes
Discharge Plan
-
Patient Disposition: Home (Routine Discharge)
Discharge Diagnosis/Procedures: Acute gastroenteritis. Elevated liver function tests. Pancreatitis.
Diet: Low Cholesterol and Other diet
Additional Diets: High carb and low fat.
Activity: As tolerated
Blood Work: Please PCP to order CBC, CMP, CPK within 1 week
Stand Alone Forms: Return to Work
Referrals:
Austin Bocanegra PA-C [Family Provider] - in less than 1 week
Prescriptions:
Continued
lisinopril 10 mg Tablet
10 mg PO HS
escitalopram oxalate [Lexapro] 10 mg Tablet
10 mg PO HS
Discharge Orders:
Discharge Patient (As Directed); Ordered 12/14/24
Ordered By: Kris Jordan
Discharge Date and Time
Discharge Date/Time: 12/14/24 11:25
Print Language: FRENCH
--- NOTE | 2024-12-14 11:25 | CM ---
Alert awake oriented patient who lives with his Karen who lives in a 2 story home with 2 step to enter and 10 steps to bed and bathroom. He is independent in driving and in all activities of daily living.He was offered VN he declined need.His
will drive him home. He agrees with dc today.
No VN hx / No SNF history
Pharmacy [facility]
PCP DR Bocanegra
PLAN Home Declined VN
[2024-12-14 19:16] LABS: Hepatitis B Surface Antigen Negative (Negative)
[2024-12-14 19:35] LABS: Hepatitis A Antibody, Total Negative (Negative); Hepatitis B Core Ab, Total Negative (Negative); Hepatitis C Antibody Negative (Negative)
[2024-12-14 21:35] LABS: Hepatitis B Surface Antibody Indeterminate
[2024-12-14 23:26] LABS: F-Actin Antibody IgG 7 Units (0-19); Mitochondrial M2 Ab, IgG 9.2 Units (0.0-24.9)
[2024-12-15 01:33] LABS: ANA, IgG Reflex to HEp-2 None Detected (None Detected)
[2024-12-16 07:00] LABS: Parvo B19 Ab, IgM 0.23 IV (<=0.89); Parvo Virus B19 Ab, IgG 0.54 IV (<=0.90)
== END 2024-12-14 11:25 | disposition home or self-care (01) | DRG 642 ==
LOC: 3 WEST ACU 16:27
PROVIDERS: Registered Nurse; Student in an Organized Health Care Education/Training Program; ADMITTING PHYSICIAN Internal Medicine; ATTENDING PHYSICIAN Hospitalist; CONSULT PHYSICIAN Internal Medicine; EMERGENCY PHYSICIAN Emergency Medicine; FAMILY PHYSICIAN Physician Assistant Medical
DX: E71.310 Long chain/very long chain acyl CoA dehydrogenase deficiency (principal); K85.90 Acute pancreatitis without necrosis or infection, unspecified; A08.11 Acute gastroenteropathy due to Norwalk agent; I10 Essential (primary) hypertension; F32.A Depression, unspecified; F41.9 Anxiety disorder, unspecified; K76.0 Fatty (change of) liver, not elsewhere classified; Z86.19 Personal history of other infectious and parasitic diseases
CPT/HCPCS: 74177; 74183; 76700; 80053; 80143; 82248; 82550; 83690; 84443; 84478; 85025; 85610; 86015; 86038; 86308; 86381; 86704; 86705; 86706; 86708; 86709; 86747; 86803; 87340; 87798; 96361; 96374; 99285; A9575; Q9967

== ENCOUNTER 2025-04-13 22:43 | Emergency (ER) | payer BC, SELFPAY ==
[2025-04-13 22:45] VITALS: BP 125/107
[2025-04-14 00:05] LABS: Urine Albumin 1+ (Neg - Trace); Urine Bilirubin Negative (Negative); Urine Character Clear (Clear); Urine Color Yellow; Urine Glucose Negative (Negative); Urine Ketone Negative (Negative); Urine Leukocyte Negative (Negative); Urine Nitrite Negative (Negative); Urine Occult Blood Negative (Negative); Urine Urobilinogen Negative (Neg - 1+)
[2025-04-14 00:30] LABS: Urine Red Blood Cell 0-2 /HPF (0-2)
--- NOTE | 2025-04-14 00:42 | ED.GENMED ---
History of Present Illness
General
Chief Complaint: Male Genito-Urinary Symptoms
Time Seen by Provider: 04/14/25 00:41
History of Present Illness
History of Present Illness:
REVIEW OF OLD RECORDS
The patient has history of high blood pressure. The patient also was admitted here in December with acute pancreatitis.
Note:
CHIEF COMPLAINT(S)
Frequent urination, urgency, burning sensation during urination, and back pain.
HISTORY OF PRESENT ILLNESS
The patient is a 35-year-old male who reports that his symptoms started last night with frequent urination and an urgent need to urinate. Initially, there was no pain, but around 7 PM tonight, he began experiencing a burning sensation during
urination. He describes difficulty in passing urine despite the urge, and currently, only produces a small amount when attempting to void. The patient is also experiencing pain in his back. He states, 'Im starting to get kind of like pain in my
back,' and although hes 'barely getting anything out right now,' he feels the need to urinate. The patient denies any history of kidney stones.
PHYSICAL EXAM
- Minimal if any left-sided costovertebral angle tenderness noted, particularly not on the right side.
- Abdominal examination reveals no significant tenderness upon palpation, though there is mild discomfort.
- General: Well appearing in no distress
- HEENT: Moist oral mucosa
- Cardiovascular: No murmurs, normal heart rate, regular rhythm, No chest wall tenderness
- Pulmonary: No respiratory distress, breath sounds are clear and equal
- Neurologic: Excellent strength all extremities, no coordination deficits
- Psychiatric: Appropriate mental status, normal insight and judgement
- Extremities: Nontender, no edema, moves all extremities equally
- Skin: No rash, no lesions
PLAN
- Propose a computed tomography (CAT) scan to rule out kidney stones, as the patient agrees to proceed with the scan. The scan may help determine if there is a kidney stone and its size or location, although there might not be findings.
DIFFERENTIAL DIAGNOSIS
The Differential Diagnosis includes, in no particular order and is not limited to:
1. Urinary Tract Infection
2. Kidney Stone
3. Bladder Infection
4. Prostatitis
5. Urethritis
6. Interstitial Cystitis
7. Acute Pyelonephritis
8. Benign Prostatic Hyperplasia
9. Non-Specific Urethritis
10. Neurogenic Bladder
RADIOLOGY
- I personally viewed CT imaging and see no evidence for ureteral stone, I also reviewed vision radiologist report which showed no sign of bowel obstruction or bowel wall thickening, prostate and bladder normal
LABS
- Urinalysis shows no sign of infection and no blood
04/14/25 - 02:06
No signs of kidney stones, urinary retention, or bowel obstruction were noted on the CT scan. The bladder and prostate appeared normal. The urinalysis showed a slight amount of protein, but it was not concerning. The patient reported recent
urination 20 minutes prior and agreed to a bladder scan for further assessment. No antibiotics are necessary as there are no signs of infection or diverticulitis. Motrin is recommended for symptomatic relief unless contraindications exist. Patient
was recommended to return if it comes to the point that he cannot void at all. We did perform a bladder scan after the patient voided. He still had 200 mL of urine in the bladder. I considered straight cath versus Lee however the patient
appears very comfortable. He is not in complaint obstruction and he prefers to just follow-up with a urologist as an outpatient.
Past History
Past History
ED Past Medical History: HTN, Psychiatric (Anxiety), Other (VLCAD) and Other
ED Past Surgical History: Other (wisdom teeth)
Social History
Tobacco: Non-smoker
Alcohol: Occasional
Personal:
Living: with family
Employment: Employed
Family History
Family History: Negative Diabetes, Hypertension or CAD
Phy Exam
Physical Exam
Physical Exam:
See HPI
Course
Orders/Labs/Results
Orders:
Orders
04/13/25 23:41
Urinalysis Reflex To Culture Urgent
Date Specimen was Collected: 04/13/25
Time Specimen was Collected: 23:40
Urine Microscopic Reflex Cult Urgent
04/14/25 00:48
CT Abd/pel Without Iv Or Oral Urgent
Comment:
Reason For Exam: L flank pain acute urinary hesitancy
Abnormal Lab Results
04/13/25
23:41
Urine Albumin (Reflex) 1+ A
(Neg - Trace)
Vital Signs
Initial and Last Documented VS:
Initial Vital Signs
Pulse Resp BP Pulse Ox
107 22 125/107 100
04/13/25 22:45 04/13/25 22:45 04/13/25 22:45 04/13/25 22:45
Last Documented Vital Signs
Pulse Resp BP Pulse Ox
107 22 125/107 100
04/13/25 22:45 04/13/25 22:45 04/13/25 22:45 04/13/25 22:45
*Pulse Oximetry
Patient hypoxic: no (100% on room air)
*Critical Care Note
Total Time (30-74mins, 75-104mins- exclusive of procedures): Not Applicable
ED Attending Note
-
Portions of this chart may have been created with voice recognition software.� Occasional wrong word or��sound alike� substitutions may have occurred due to the inherent limitations of voice recognition software.
Discharge Plan
Departure
Patient Disposition: Home (Routine Discharge)
Date of Disposition: 04/14/25
Time of Disposition: 02:19
Patient with high blood pressure during this ER visit?: Yes
Discharge Problem:
Dysuria
Instructions: Urinary Retention (DC), BLOOD PRESSURE
Prescriptions:
No Action
lisinopril 10 mg Tablet
10 mg PO HS
escitalopram oxalate [Lexapro] 10 mg Tablet
10 mg PO HS
Referrals:
Dickson Plaza MD [Active, Urology]
Austin Bocanegra PA-C [Family Provider, Family Practice]
Activity Restrictions/Additional Instructions:
The cause of your symptoms is unclear. The urinalysis does not show any clear sign of infection. There is no blood in the urine. The CAT scan shows no sign of kidney stones. Your postvoid residual was still around 200 mL which is unexpected for
a 35-year-old male. I recommend that you follow-up with a local urologist such as Dr. Plaza.
Interventions
Interventions:
*Risk Screen - Suicide Last Done: 04/13/25 22:49
*Neglect/Abuse Screening Last Done: 04/13/25 22:49
ED-Male Genitourinary Assessment Last Done: 04/14/25 01:00
Discharge Date and Time
Print Language: EQUATORIAL GUINEAN
[2025-04-14 02:00] VITALS: BP 129/87
== END 2025-04-14 02:40 | disposition home or self-care (01) ==
LOC: EMR 22:43
PROVIDERS: Emergency Medicine; EMERGENCY PHYSICIAN Emergency Medicine; FAMILY PHYSICIAN Physician Assistant Medical
DX: R30.0 Dysuria (principal); F41.9 Anxiety disorder, unspecified; I10 Essential (primary) hypertension; Z87.19 Personal history of other diseases of the digestive system
CPT/HCPCS: 99284; 74176; 81003; 81015